=== PATIENT | female | born 1995 | race Caucasian/White ===

== ENCOUNTER 2017-06-11 16:06 | Emergency (ER) | payer OTHER ==
--- NOTE | 2017-06-11 16:14 | UC ---
Ear Complaint HPI - HPI Summary HPI Summary: Pt presents with mother. 5 day history of right ear pain and discomfort. Pt tells me that she is gets an "Ear infection" at least once a year requiring antibiotic treatment - this feels the same. She has been taking claritin OTC with minimal relief. She is flying to [place] tomorrow for a few days to visit her boyfriend and wanted to get her ears checked out before leaving. She denies fever, chills, cough, ST, sinus congestion, ear drainage, SOB, chest pain, N/V/D /C - History of Current Complaint Chief Complaint: UCEar Stated Complaint: EAR ACHE Time Seen by Provider: 06/11/17 16:14 Hx Obtained From: Patient Hx Last Menstrual Period: 05/26/15 ?: No Onset/Duration: Gradual Onset Severity Initially: Mild Severity Currently: Moderate Pain Intensity: 8 Pain Scale Used: 0-10 Numeric Aggravating Factors: Cold Alleviating Factors: Nothing - Allergies/Home Medications Allergies/Adverse Reactions: Allergies Allergy/AdvReac Type Severity Reaction Status Date / Time Penicillins Allergy Severe See Comment Verified 06/06/15 16:23 Home Medications: Home Medications LoraTADine TAB(NF) [Claritin 10 MG TAB(NF)] 1 tab 06/11/17 [History] PMH/Surg Hx/FS Hx/Imm Hx Previously Healthy: Yes - Surgical History Surgical History: None - Social History Occupation: Student Lives: Dormitory/Roommates Alcohol Use: None Substance Use Type: None Smoking Status (MU): Never Smoked Tobacco Review of Systems Constitutional: Negative Skin: Negative Eyes: Negative ENT: Ear Ache Respiratory: Negative Cardiovascular: Negative Gastrointestinal: Negative Genitourinary: Negative All Other Systems Reviewed And Are Negative: Yes Physical Exam Triage Information Reviewed: Yes Appearance: Well-Appearing, Well-Nourished Vital Signs Reviewed: Yes Eyes: Positive: Conjunctiva Clear ENT: Positive: Hearing grossly normal, Pharynx normal, TM bulging - Left > right , TM dull - Left > right, TM red - Left > right, Uvula midline. Negative: Pharyngeal erythema, Nasal congestion, Nasal drainage, Tonsillar swelling, Tonsillar exudate, Sinus tenderness Neck: Positive: Supple, Nontender, No Lymphadenopathy Respiratory: Positive: Chest non-tender, Lungs clear, Normal breath sounds, No respiratory distress, No accessory muscle use Cardiovascular: Positive: RRR, No Murmur, Pulses Normal Neurological: Positive: Alert Psychological: Positive: Age Appropriate Behavior Ear Complaint Course/Dx - Course Course Of Treatment: Otitis media Left > right. Zpak and continue claritin - Differential Dx/Diagnosis Differential Diagnosis/HQI/PQRI: Otitis Externa, Otitis Media Provider Diagnoses: Otitis Media Left ear Discharge - Discharge Plan Condition: Stable Disposition: HOME Prescriptions: Azithromycin TAB* [Zithromax TAB (Z-VENITA) 250 mg #6 tabs] 2 tab PO .TODAY, THEN 1 DAILY #1 venita Patient Education Materials: Otitis Media (ED) Referrals: No Primary Care Phys,NOPCP [Primary Care Provider] - Additional Instructions: 1) Continue taking claritin 2) Zpak as directed If you develop a fever, SOB, chest pain, new or worsening symptoms - please call your PCP or go to the ED.
[2017-06-11 16:17] VITALS: BP 113/69
== END 2017-06-11 16:55 | disposition home or self-care (01) ==
LOC: UCEAST 16:06
DX: H66.93 Otitis media, unspecified, bilateral (principal)
CPT/HCPCS: 99212; G0463